=== PATIENT | female | born 1960 | race Caucasian/White ===

== ENCOUNTER → 2018-05-27 | Outpatient (CLI) | payer OTHER | LOC: M.ULTRA 08:00 | DX: K76.0 Fatty (change of) liver, not elsewhere classified (principal); K80.20 Calculus of gallbladder without cholecystitis without obstruction; R16.0 Hepatomegaly, not elsewhere classified ==

== ENCOUNTER → 2019-12-24 | Outpatient (CLI) | payer OTHER | LOC: M.ULTRA 15:11 | DX: K80.20 Calculus of gallbladder without cholecystitis without obstruction (principal); N30.00 Acute cystitis without hematuria ==

== ENCOUNTER → 2020-01-12 | Day surgery (SDC) | payer OTHER ==
[~2020-01-12] MED LIST: EUTHYROX125 MCG PO; LISINOPRIL-HCT1 EACH PO; PERCOCET 5-3251 EACH PO
[2020-01-12 07:08] LABS: CALCIUM 8.5 mg/dL (8.5-10.1); POTASSIUM 3.5 mmol/L (3.5-5.1)
[2020-01-12 07:13] LABS: ALBUMIN 3.6 g/dL (3.4-5.0); TOTAL BILIRUBIN 0.6 mg/dL (<0.1-1.0); TOTAL PROTEIN 7.1 g/dL (6.4-8.2)
--- NOTE | 2020-01-14 15:18 | OP ---
[address] [address] OPERATIVE REPORT Name: BOZENA SILVA Room: [facility]#: [id number] Admission: 01/12/20 Attend Phys: Ekaterina Osborne Discharge: Date of : 60 Report #: [id number] THIS REPORT FOR: //name// cc: Alis Najera MD, Lin W. MD ~ THIS REPORT FOR: //name// CC: Ishmael Najera DATE OF SERVICE: 01/12/2020 SURGEON: Dr. Ishmael Valencia PROCESSING SPEC: Dr. Kyaw Yates PREOPERATIVE DIAGNOSES: Cholelithiasis and biliary colic. POSTOPERATIVE DIAGNOSES: Cholelithiasis and biliary colic. PROCEDURE: Laparoscopic cholecystectomy. INDICATIONS: Ms. Silva is a 59-year-old female who presented to the office with complaints of right upper quadrant pain. History of present illness, physical exam, and imaging were consistent with cholelithiasis and biliary colic. Operative intervention was discussed in detail. Risks and benefits including bleeding, infection, and damage to nearby structures including the common bile duct were explained. The patient agreed to proceed with surgery. DESCRIPTION OF PROCEDURE: The patient was taken to the operating theater and placed in the supine position. Bilateral SCDs were placed and preoperative antibiotics were given. General anesthesia was induced without complication. The patient's abdomen was prepped and draped in the standard sterile fashion. A 1 cm supraumbilical incision was made using an 11 blade scalpel. The subcutaneous tissue was dissected using S retractors down to the midline fascia. Once the midline fascia was encountered, it was scored using electrocautery and elevated with Nithya clamps. The peritoneum was entered bluntly using a hemostat. 0 Vicryl was used for stay sutures on each side of the fascia and the Bucky trocar was inserted into the abdomen. Insufflation to 15 mmHg was obtained and the camera was then inserted. No injury to intra-abdominal structures noted upon abdominal entry. Next, the patient was placed in the reverse Trendelenburg left side down position. A 5 mm subxiphoid port was then placed under direct visualization. Next, two more 5 mm ports were placed in the right subcostal position under direct visualization. The gallbladder fundus was then grasped and elevated anteriorly and cephalad. There were [place] [address] OPERATIVE REPORT Name: KALIAYUSRABOZENA Room: [facility]#: [id number] Admission: 01/12/20 Attend Phys: Ekaterina Osborne Discharge: Date of : 60 Report #: [id number] These were taken down with electrocautery. Next, Linda's pouch was grasped and taken medially and inferiorly and the lateral gallbladder peritoneum was taken down using electrocautery. Next, Linda's pouch was taken laterally and inferiorly and medial gallbladder peritoneum was taken down using electrocautery. A [place] dissector was then used to dissect out the cystic duct and cystic artery. Once these were skeletonized from the medial and lateral side, we were certain we had obtained the critical view of safety. There were two structures entering the gallbladder and only two structures. Next, the cystic artery was clipped twice proximally and once distally using the 5 mm endoclips. The cystic duct was too large for 5mm endoclips so the subxiphoid port was exchanged for a 10 mm port, and 10 mm endoclips were used on the cystic duct. Three clips were placed proximally and one distally. The artery and duct were then transected in between the proximal and distal clips using EndoShears. The gallbladder was then taken off the gallbladder fossa using electrocautery and placed in an EndoCatch bag. The liver was then elevated and inspected for hemostasis. There were no areas of bleeding. The intraabdominal clips were viewed again and were intact. The right upper quadrant was then irrigated using 100 mL of saline until the fluid ran clear and was then suctioned out. All ports were removed under direct visualization. Next, the Bucky trocar and the EndoCatch bag were removed and the abdomen was desufflated. The midline fascia was closed using 0 Vicryl in a figure-of-8 fashion. The stay sutures were also tied for further reinforcement. Next, all skin incisions were closed using 4-0 Monocryl and dressed with Steri-Strips, gauze, and Tegaderms. This concluded the procedure. All sponge, needle, and instrument counts were correct x 2. ESTIMATED BLOOD LOSS: 5 mL. ANESTHESIA: General endotracheal anesthesia. SPECIMEN: Gallbladder. DRAINS: None. DISPOSITION: The patient was extubated in the operating theater and taken to the PACU in stable condition. <ELECTRONICALLY SIGNED> By: Ishmael Valencia DO 01/14/20 1518 1023 [id number] Valencia DO /nt
--- NOTE | 2020-02-05 14:48 | EKG ---
[place] [address] ELECTROCARDIOGRAM REPORT Name: BOZENA SILVA Room: [facility]#: [id number] Admission: 01/12/20 Attend Phys: Ishmael Valencia Discharge: Date of : 60 Date of Service: 01/12/20 0731 Report #: [id number] THIS REPORT FOR: cc: Alis Najera MD, Lin W. MD Holkins,Clayton Luque MD [facility] ~ THIS REPORT FOR: //name// [place] Test Date: 2020-01-12 Test Time: 07:31:32 Pat Name: BOZENA SILVA Department: Room: Gender: F Clinical Advisor: : 1960 Requested By: Ishmael Valencia Order Number: [id number] Reading MD: Clayton Fowler Measurements Intervals [place] Rate: 59 P: 41 DC: 185 QRS: -27 QRSD: 97 T: 3 QT: 438 QTc: 434 Interpretive Statements Sinus rhythm Inferior infarct, old Baseline wander in lead(s) II,III,aVF No previous ECG available for comparison Electronically Signed On 01-12-2020 12:52:12 VENDING SERVICE TECHNICIAN by Clayton Fowler [email or web address] <ELECTRONICALLY SIGNED> By: Clayton Fowler MD, [facility] 01/12/20 1252 0 0 Clayton Fowler MD, [facility] /EPI
== END | disposition home or self-care (01) ==
LOC: M.SUR 05:57
PROVIDERS: Surgery
DX: K80.70 Calculus of gallbladder and bile duct without cholecystitis without obstruction (principal); Z79.899 Other long term (current) drug therapy; Z79.891 Long term (current) use of opiate analgesic

== ENCOUNTER → 2021-11-07 | Outpatient (CLI) | payer OTHER | LOC: M.RAD 10:00 | PROVIDERS: ATTEND Internal Medicine | DX: M79.672 Pain in left foot (principal) ==